=== PATIENT | male | born 1990 | race Caucasian/White ===

== ENCOUNTER 2024-10-21 21:16 | Emergency (ER) | payer OTHER, SELFPAY ==
[2024-10-21 21:18] VITALS: BP 125/90
--- NOTE | 2024-10-22 00:03 | ED.SKININJ ---
HPI-Injury
General
Chief Complaint: Skin Problem
Source: patient
Exam Limitations: none
Time Seen by Provider: 10/21/24 23:46
Nursing documentation reviewed up to this point in time: agreed with
History of Present Illness-Injury
Initial Injury comments:
34-year-old male with no clinically significant medical history presents with rash with blisters on erythematous base rash on the right wrist. He states Saturday he contacted [employer] or [employer] and Saturday is when the rash broke out. He
denies fever or chills. He states the rash is not painful or itchy. He states some of the blisters have broken and drained.
Past History
Past History
ED Past Medical History: Asthma
ED Past Surgical History: Tonsilectomy
Social History
Tobacco: Non-smoker
Drug: None
Personal:
Review of Systems
Review of Systems
Allergies reviewed?: Yes
All Other Systems: ROS reviewed and negative except as documented in HPI and ROS
Constitutional: Denies fever or chills
Skin: Reports rash
Phy Exam
Physical Exam
Physical Exam:
PHYSICAL EXAMINATION:
General: no apparent distress, not acutely ill
Neuro: alert and oriented.
Psychiatric: well kept. interactive and cooperative
Musculoskeletal: Moves with ease
Skin: Warm, pink. Approximately 6 cm band across the right wrist blistering rash on a mildly erythematous base. The blisters range from 3 mm to 5 mm in size. They are full of yellow serous fluid. Some of them are broken
and are starting to scab, others are intact. The rest of the skin is unaffected, the proximal hand minimally swollen. Distal neurovascular intact.
Course
Orders/Labs/Results
Orders:
Orders
10/22/24 00:03
Dexamethasone [Decadron] 10 mg PO NOW STA
Vital Signs
Initial and Last Documented VS:
Initial Vital Signs
Temp Pulse Resp BP Pulse Ox
98.5 F 84 18 125/90 99
10/21/24 21:18 10/21/24 21:18 10/21/24 21:18 10/21/24 21:18 10/21/24 21:18
Last Documented Vital Signs
Temp Pulse Resp BP Pulse Ox
98.5 F 84 18 125/90 99
10/21/24 21:18 10/21/24 21:18 10/21/24 21:18 10/21/24 21:18 10/21/24 21:18
MDM/Problems Addressed
MDM/Problems Addressed:
34-year-old male with no clinically significant medical history presents with rash with blisters on erythematous base on the right wrist. He states Saturday he contacted poison oak or poison bharti and Saturday is when the rash broke out. He denies
fever or chills. He states the rash is not painful or itchy. He states some of the blisters have broken and drained.
Afebrile
Most of the rash is on the dorsum of the left wrist from the area 2 cm above the ulnar styloid to 3 cm just below the ulnar styloid on the dorsum. There are numerous bullous blisters some broken some intact, the underlying skin is mildly
erythematous with no cellulitis.
Patient states he had poison sumac last year and received a tapering dose of steroid and developed a different worse rash
Plan: 1 dose of Decadron now, he is concerned about infection and knows the signs of infection. Given a prescription for doxycycline along with instructions on if and when to start it if the wound starts to look infected. Prescription for
mupirocin ointment sent to his pharmacy
ED Attending Note
-
Portions of this chart may have been created with voice recognition software.� Occasional wrong word or��sound alike� substitutions may have occurred due to the inherent limitations of voice recognition software.
Discharge Plan
Departure
Patient Disposition: Home (Routine Discharge)
Date of Disposition: 10/22/24
Time of Disposition: 00:26
Patient with high blood pressure during this ER visit?: No
Condition: Good
Discharge Problem:
Dermatitis due to plants, including poison bharti, sumac, and oak
Instructions: Poison Bharti, Poison [facility], Poison [place] ED
Prescriptions:
New
mupirocin 2 % ointment
1 applic topical BID Qty: 15 0RF
doxycycline monohydrate 100 mg capsule
100 mg PO BID Qty: 14 0RF
Referrals:
Tung Perdomo IV, MD [Family Provider] -
Activity Restrictions/Additional Instructions:
As we discussed, I sent a prescription to your pharmacy for mupirocin ointment to apply twice a day
Keep the wound clean daily with soap and water, dry it well, allow it to dry out in the air when you are resting
Otherwise keep it covered when you are up and around.
Start the doxycycline if you note signs of infection which are increasing redness, swelling, pus drainage (not the clear yellow drainage we see), red streak up the arm, fever.
Interventions
Interventions:
*Risk Screen - Suicide Last Done: 10/21/24 21:18
*General Assessment Last Done: 10/21/24 21:18
*Neglect/Abuse Screening Last Done: 10/21/24 21:18
*ED- Fall Risk Assessment Last Done: 10/21/24 21:18
*ED COVID-19 Vaccine History Last Done: 10/21/24 21:18
Discharge Date and Time
Print Language: SINHALA
[2024-10-22] MEDS: DECADRON 10 MG PO (00:24)
[2024-10-22 00:40] VITALS: BP 122/64
== END 2024-10-22 00:40 | disposition home or self-care (01) ==
LOC: EMR 21:16
PROVIDERS: EMERGENCY PHYSICIAN Emergency Medicine; FAMILY PHYSICIAN Family Medicine
DX: L23.7 Allergic contact dermatitis due to plants, except food (principal); J45.909 Unspecified asthma, uncomplicated
CPT/HCPCS: 99282